=== PATIENT | female | born 1975 | race Caucasian/White ===

== ENCOUNTER 2016-06-09 13:49 | Inpatient (IN) | payer MEDICAID, OTHER ==
[2016-06-09 15:05] VITALS: BMI 24.1
[2016-06-09 16:32] LABS: BASO % 0.5 % (0.0-2.0); EOS % 0.2 % (0.0-4.0); HEMATOCRIT 38.2 % (34.0-47.0); LYMPH # 4.3 K/uL (1.0-4.3); LYMPH % 62.2 % (20.0-40.0); MEAN CELL VOLUME 82.6 fL (81.0-99.0); MEAN CORPUSCULAR HEMOGLOBIN 26.8 pg (27.0-31.0); MEAN CORPUSCULAR HGB CONC 32.4 g/dL (33.0-37.0); MEAN PLATELET VOLUME 8.5 fL (7.2-11.7); MONO # 0.6 K/uL (0.0-0.8); MONO % 7.9 % (0.0-10.0); NRBC % 0.1 % (0.0-2.0); PLATELET COUNT 164 K/uL (130-400); RED CELL DISTRIBUTION WIDTH 14.4 % (11.5-14.5); WHITE BLOOD COUNT 6.9 K/uL (4.8-10.8)
[2016-06-09 16:38] LABS: RBC URINE 1 /hpf (0-3); URINE BILIRUBIN NEGATIVE (NEGATIVE); URINE BLOOD NEGATIVE (NEGATIVE); URINE COLOR Yellow (YELLOW); URINE GLUCOSE (UA) NORMAL (Normal); URINE KETONE NEGATIVE (NEGATIVE); URINE LEUKOCYTE ESTERASE NEG Leu/uL (Negative); URINE PROTEIN NEGATIVE (NEGATIVE); URINE UROBILINOGEN NORMAL mg/dL (0.2-1.0); WBC URINE 2 /hpf (0-5)
[2016-06-09 16:40] LABS: CHLORIDE 97 mmol/L (98-107)
[2016-06-09 16:41] LABS: POTASSIUM 3.7 mmol/L (3.6-5.2); SODIUM 142 mmol/L (132-148)
[2016-06-09 16:43] LABS: ALKALINE PHOSPHATASE 75 U/L (38-126); ALT/SGPT 28 U/L (9-52); AST/SGOT 31 U/L (14-36); BILIRUBIN,TOTAL 0.5 mg/dL (0.2-1.3); BLOOD UREA NITROGEN 10 mg/dL (7-17); CARBON DIOXIDE 29 mmol/L (22-30); GFR AFRICAN-AMERICAN > 60; GLUCOSE,RANDOM 76 mg/dL (65-105); TOTAL PROTEIN 8.1 g/dL (6.3-8.3)
[2016-06-09 16:44] LABS: ALCOHOL SERUM < 10 mg/dl (0-10); CALCIUM 9.1 mg/dl (8.6-10.4)
--- NOTE | 2016-06-09 17:02 | C.PDOC ---
History Of Present Illness 40 y/o female with schizophrenia/bipolar disorder and substance user comes to ED for detox program,. pt last used heroin this morning, snorts 6 bags per day. pt reoprts feeling sad, but denies any hi, si and ah. pt sts she feels some chills, feels like the beginning of withdrawal. pt ran out of her psychiatric medications (seroquel, vistaril, wellbutrin, gabapentin) 2-3 days ago. Time Seen by Provider: 06/09/16 16:29 Chief Complaint (Nursing): Substance Abuse Past Medical History Reviewed: Historical Data, Nursing Documentation, Vital Signs Vital Signs: Last Vital Signs Temp 99.3 F 06/09/16 15:05 Pulse 91 H 06/09/16 19:07 Resp 18 06/09/16 19:07 BP 141/95 H 06/09/16 19:07 Pulse Ox 98 06/09/16 19:07 - Medical History PMH: Bipolar Disorder, Schizophrenia Surgical History: No Surg Hx Family History: States: Unknown Family Hx - Social History Hx Tobacco Use: Yes Hx Alcohol Use: No Hx Substance Use: Yes (heroin snorts) - Immunization History Hx Tetanus Toxoid Vaccination: No Hx Influenza Vaccination: No Hx Pneumococcal Vaccination: No Review Of Systems Constitutional: Negative for: Fever, Chills Cardiovascular: Negative for: Chest Pain, Palpitations Respiratory: Negative for: Cough, Shortness of Breath Gastrointestinal: Negative for: Nausea, Vomiting, Abdominal Pain Genitourinary: Negative for: Dysuria, Frequency, Incontinence Neurological: Negative for: Weakness, Numbness Physical Exam - Physical Exam Appears: Non-toxic, No Acute Distress Skin: Normal Color, Warm, Dry Head: Atraumatic, Normacephalic Nose: Normal Oral Mucosa: Moist Neck: Normal ROM Chest: Symmetrical, No Deformity, No Tenderness Respiratory: Normal Breath Sounds, No Rales, No Rhonchi, No Wheezing Gastrointestinal/Abdominal: Bowel Sounds, Soft, No Tenderness Neurological/Psych: Oriented x3, Normal Speech, Normal Motor, Normal Sensation ED Course And Treatment - Laboratory Results Result Diagrams: 06/09/16 16:27 06/09/16 16:27 O2 Sat by Pulse Oximetry: 99 Medical Decision Making Medical Decision Makin y'o female here for detox program, pt has been [id number] by crisis program. awaits medical clearance. 556 pt is medicaly cleared for psychiatric evaluation. Disposition Discussed With Dr.: Julieth Mattson Doctor Will See Patient In The: Hospital - Disposition Disposition: HOSPITALIZED Disposition Time: 18:55 Condition: GOOD - Clinical Impression Clinical Impression: Drug dependence, Opioid use disorder, moderate, dependence Decision To Admit - Pt Status Changed To: Hospital Disposition Of: Inpatient - Admit Certification Admit to Inpatient:: After my assessment, the patient will require hospitalization for at least two midnights. This is because of the severity of symptoms shown, intensity of services needed, and/or the medical risk in this patient being treated as an outpatient. - InPatient: Physician Admission Certification: I certify that this patient requires 2 or more midnights of care for the following reason:: for drug detox - . Bed Request Type: Detox Admitting Physician: Julieth Mattson Patient Diagnosis: Drug dependence, Opioid use disorder, moderate, dependence
[2016-06-09] MEDS ORDERED: Buprenorphine Hydrochloride 2 mg SL ONE ×2 (19:40→21:00)
[2016-06-10 00:03] LABS: LARGE PLATELETS PRESENT; NEUTROPHIL 32 % (50-75); REACTIVE LYMPHOCYTES 11 % (0-0); SMUDGE CELLS PRESENT; TOTAL CELLS COUNTED 100
[2016-06-10] MEDS: Buprenorphine Hydrochloride 2 mg SL SCH (09:13)
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
[2016-06-10] MEDS: Magnesium Hydroxide Susp 30 ml UD PO SCH (17:35)
[2016-06-11] MEDS: Buprenorphine Hydrochloride 2 mg SL SCH (09:21)
[2016-06-11] MEDS: Magnesium Hydroxide Susp 30 ml UD PO SCH (09:26)
--- NOTE | 2016-06-11 12:16 | PCM.PYCHPN ---
Psychiatric Progress Note - Psychiatric Progress Note Patient seen today, length of contact: 15 minutes Patient Chief Complaint: I'm feeling much better Problems Identified/Issues Discussed: Patient seen with a Omani speaking staff member on the unit. Chart reviewed. Case discussed with the staff. Issues related to illness and treatment were discussed with the patient. Patient reported compliant with treatment with no adverse affects. Tolerating treatment very well. Feeling much better with very mild withdrawal symptoms. At the time of evaluation, patient was awake alert oriented 3, had no delusions, no auditory or visual hallucinations, no suicidal ideations or homicidal ideations. Medical Problems: None reported Diagnostic Results: Reviewed DSM 5 Symptoms Update: Improving with treatment Medication Change: No Medical Record Reviewed: Yes Mental Status Examination - Cognitive Function Orientation: Person, Place, Situation, Time Memory: Intact Attention: WNL Concentration: WNL Association: [facility] Fund of Knowledge: [facility] Decription of patient's judgement and insights: Fair - Mood Mood: Depressed (Much less than before) - Affect Affect: Depressed - Speech Speech: Appropriate - Formal Thought Process Formal Thought Process: No Impairment Psychotic Thoughts and Behaviors: None - Suicidal Ideation Suicidal Ideation: No - Homicidal Ideation Homicidal Ideation: No Goal/Treatment Plan - Goal/Treatment Plan Need for Continued Stay: Remain at risks for inpatient hospitalization, Discharge may exacerbated symptoms, Severe functional impairment Progress Toward Problem(s) and Goals/Treatment Plan: Patient education Supportive therapy [place] intervention Continue detox with Subutex Other when necessary medications Patient wants to go to [facility] for follow-up care after discharge from the hospital Estimated Date of D/C: 06/12/16 - Smoking Cessation Smoking Cessation Initiated: Yes
[2016-06-11] MEDS ORDERED: Magnesium Hydroxide Susp 30 ml UD PO ONE (13:20)
[2016-06-12] MEDS ORDERED: Buprenorphine Hydrochloride 2 mg SL ONE (08:10)
[2016-06-12 08:59] VITALS: BP 102/67; PULSE 93; RESP 18; TEMP 98.3; O2SAT 97
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
== END 2016-06-12 08:55 | disposition home or self-care (01) | DRG 745 ==
LOC: C.ER 13:49 → C.7D 18:54
PROVIDERS: ADMIT Psychiatry & Neurology Psychiatry; ATTEND Psychiatry & Neurology Psychiatry
DX: F11.90 Opioid use, unspecified, uncomplicated (principal); F31.9 Bipolar disorder, unspecified; F17.210 Nicotine dependence, cigarettes, uncomplicated; F14.90 Cocaine use, unspecified, uncomplicated